=== PATIENT | male | born 1955 | race Caucasian/White ===

== ENCOUNTER → 2018-02-28 | Outpatient (CLI) | payer OTHER | LOC: M ONCR 14:03 | DX: C61 Malignant neoplasm of prostate (principal) | CPT/HCPCS: G0463 ==

== ENCOUNTER → 2018-03-04 | Outpatient (CLI) | payer OTHER | LOC: M SMT PRO 08:46 | DX: C61 Malignant neoplasm of prostate (principal) | CPT/HCPCS: 55876; 76872 ==

== ENCOUNTER → 2018-04-23 | Outpatient (RCR) | payer OTHER ==
--- NOTE | 2018-03-25 09:15 | RADONC ---
RADIATION ONCOLOGY SIMULATION NOTE DATE: 03/25/2018 CHART NUMBER: [id number] Mr. Stanton was taken to the CT scan for CT simulation of his prostate field. CT was accomplished without difficulty or discomfort. Radiation treatment planning is underway and radiation treatments will begin subsequently. An immobilization device was created and be used throughout the course of treatment. It was created without difficulty or discomfort. I was physically present throughout the course of CT simulation.
--- NOTE | 2018-04-08 08:08 | RADONC ---
RADIATION ONCOLOGY PROGRESS NOTE DATE: 04/07/2018 CHART NUMBER: [id number] Mr. Stanton is presently at a dose of 1080 cGy to his prostate and is tolerating treatments quite well at this point with no complaints related to his radiation therapy. He has no urinary or bowel difficulties and no bone pain. REVIEW OF SYSTEMS: The patient's review of systems is noncontributory. He denies nausea, vomiting, fevers, chills, night sweats, diplopia, headaches, anxiety or depression, anorexia, weight loss, visual disturbances, chest pain, urinary or bowel difficulties, bone pain or neurological problems. PHYSICAL EXAMINATION: The patient's skin is in good condition with no evidence of moist or dry desquamation. The remainder of his physical exam remains unchanged. ASSESSMENT: Mr. Stanton tolerated his treatments quite well and radiation will continue as scheduled.
--- NOTE | 2018-04-15 10:14 | RADONC ---
RADIATION ONCOLOGY PROGRESS NOTE DATE: 04/14/2018 CHART NUMBER: [id number] Mr. Stanton is presently at a dose of 1980 cGy to his prostate and is tolerating treatments quite well at this point with no complaints related to his radiation therapy. He is having no urinary or bowel difficulties and no bone pain. REVIEW OF SYSTEMS: The patient's review of systems is noncontributory. He denies nausea, vomiting, fevers, chills, night sweats, diplopia, headaches, anxiety or depression, anorexia, weight loss, visual disturbances, chest pain, urinary or bowel difficulties, bone pain or neurological problems. PHYSICAL EXAMINATION: The patient's skin is in good condition with no evidence of moist or dry desquamation. The remainder of his physical exam remains unchanged. Mr. Stanton is tolerating treatments quite well and radiation will continue as scheduled.
--- NOTE | 2018-04-22 09:11 | RADONC ---
RADIATION ONCOLOGY PROGRESS NOTE DATE: 04/21/2018 CHART NUMBER: [id number] Mr. Stanton is presently receiving radiotherapy for a diagnosis of prostate cancer. His current dose of radiotherapy is 2880 cGy of an anticipated 7920 cGy. REVIEW OF SYSTEMS: The patient denies any nausea, vomiting, diarrhea, dysuria, hematuria or blood per rectum. His energy level is excellent and he is able to maintain most of his day-to-day activities without any alteration of his lifestyle. Skin irritation is denied. He denies dysuria or frequency. PHYSICAL EXAMINATION: The skin within the irradiated volume shows no evidence of erythema and certainly no focal desquamation. The remainder of the physical examination remains unchanged. IMPRESSION: Tolerating therapy quite well. PLAN: Treatments to continue.
== END ==
LOC: M ONCR 03-24 08:48
PROVIDERS: ATTEND Radiology Radiation Oncology
DX: C61 Malignant neoplasm of prostate (principal)

== ENCOUNTER 2018-04-24 07:49 | Outpatient (RCR) | payer OTHER | END 2018-05-23 | LOC: M ONCR 04-25 07:47 | DX: C61 Malignant neoplasm of prostate (principal) | CPT/HCPCS: 77300 ==

== ENCOUNTER 2018-06-04 07:52 | Outpatient (RCR) | payer OTHER ==
--- NOTE | 2018-06-03 10:12 | RADONC ---
RADIATION ONCOLOGY PROGRESS NOTE DATE: 06/02/2018 CHART NUMBER: [id number] Mr. Stanton is presently at a dose of 7560 cGy to his prostate and is tolerating treatments quite well at this point with no complaints related to his radiation therapy. He is having no urinary or bowel difficulties and no bone pain. REVIEW OF SYSTEMS: The patient's review of systems is noncontributory. He denies nausea, vomiting, fevers, chills, night sweats, diplopia, headaches, anxiety or depression, anorexia, weight loss, visual disturbances, chest pain, urinary or bowel difficulties, bone pain or neurological problems. PHYSICAL EXAMINATION: The patient's skin is in good condition with no evidence of radiation change present. There is no moist or dry desquamation. The remainder of his physical exam remains unchanged. Mr. Stanton is tolerating treatments quite well and radiation will continue as scheduled.
--- NOTE | 2018-06-05 10:10 | RADONC ---
RADIATION ONCOLOGY TREATMENT SUMMARY DATE: 06/04/2018 CHART NUMBER: [id number] DIAGNOSIS: Prostate cancer. STAGE: II B, [id number], PSA 12.1, [place] score 7 (3-4), grade group II. ECOG PERFORMANCE STATUS: 0 TREATMENT SUMMARY: Mr. Stanton is a very pleasant, 62-year-old white male with the diagnosis of a stage II B, moderate to poorly differentiated Parrish score 7 (3-4) adenocarcinoma of prostate with a PSA score of 12.1 who is presented to us for consideration of definitive external beam radiation therapy with IMRT/IGRT. We treated the patient to his prostate for a dose of 7920 cGy delivered in 44 fractions of 180 cGy each over 63 elapsed days from 03/31/2018 through 06/04/2018. The patient's prostate was treated on the linear accelerator utilizing a 6 MV photon beam via IMRT/IGRT. We treated the prostate and seminal vesicles initially to a dose of 5400 cGy and in 30 fractions of 180 cGy each and subsequently coned down to the prostate itself to deliver an additional 14 fractions for a dose of 2520 cGy once again bringing the prostate to a total dose of 7920 cGy. Mr. Stanton tolerated his treatments quite well with no significant difficulties related to his radiation therapy. The patient is scheduled see me again in 1 month for further followup. He will also continue to be followed by his other physicians as well. Thank you for allowing us to participate in the care of this very pleasant gentleman. If I could be of any further assistance or provide you with any information, please feel free to contact me anytime. As always, warm regards. cc: Roberto Knox MD [facility]
== END 2018-06-23 ==
LOC: M ONCR 07:52
PROVIDERS: ATTEND Radiology Radiation Oncology
DX: C61 Malignant neoplasm of prostate (principal)

== ENCOUNTER → 2018-07-05 | Outpatient (CLI) | payer OTHER | LOC: M LRY 10:46 | PROVIDERS: ATTEND Radiology Radiation Oncology | DX: C61 Malignant neoplasm of prostate (principal) ==

== ENCOUNTER → 2018-07-09 | Outpatient (CLI) | payer OTHER ==
--- NOTE | 2018-07-10 11:06 | RADONC ---
RADIATION ONCOLOGY FOLLOWUP NOTE DATE: 07/09/2018 CHART NUMBER: [id number] DIAGNOSIS: Prostate cancer. STAGE: Stage II B, [id number], PSA 12.1, Parrish score 7 (3+4), grade group II. ECOG PERFORMANCE STATUS: 0. FOLLOWUP NOTE: Mr. Stanton is a very pleasant 62-year-old white male with the diagnosis of a stage II B, moderate to poorly differentiated [place] score seven (3+4) adenocarcinoma of prostate with a PSA score of 12.1 who is presenting to us today for routine followup visit 1 month post completion of external beam radiation therapy. The patient presents today reporting that he is doing quite well with no complaints at this time related to his radiation therapy or disease. He has no urinary or bowel difficulties. No bone pain. The patient's review of systems is noncontributory. Denies nausea, vomiting, fevers, chills, night sweats, diplopia, headaches, anxiety or depression, anorexia, weight loss, visual disturbances, chest pain, urinary or bowel difficulties, bone pain, or neurological problems. PHYSICAL EXAMINATION: The patient is a well-developed, well-nourished male in no acute distress. HEENT exam is normocephalic, atraumatic. Extraocular movements are intact. There is no palpable cervical, supraclavicular, infraclavicular, axillary, or inguinal lymphadenopathy present. Lungs are clear to auscultation and percussion. Heart has a regular rate and rhythm. Abdomen is benign with no hepatosplenomegaly, masses, or tenderness. Rectal examination reveals a normal anal sphincter tone. His prostate is smooth with no evidence of nodularity. Skeletal examination reveals no tenderness to pressure or percussion of the bony skeleton. Extremities reveal no clubbing, cyanosis, or edema. Neurologic exam is grossly intact, as is the remainder of the physical examination. ASSESSMENT: The patient is clinically MERCED at this time and will be seen by us again in 6 months for further followup. He will also continue to be followed by his other physicians as well.
== END ==
LOC: M ONCR 09:09
PROVIDERS: ATTEND Radiology Radiation Oncology
DX: C61 Malignant neoplasm of prostate (principal)

== ENCOUNTER → 2018-12-19 | Outpatient (CLI) | payer OTHER | LOC: M LRY 10:00 | PROVIDERS: ATTEND Radiology Radiation Oncology | DX: C61 Malignant neoplasm of prostate (principal) ==

== ENCOUNTER → 2018-12-24 | Outpatient (CLI) | payer OTHER ==
--- NOTE | 2018-12-24 14:29 | RADONC ---
RADIATION ONCOLOGY FOLLOW-UP NOTE DATE: 12/24/2018 CHART NUMBER: [id number] DIAGNOSIS: Prostate cancer. STAGE: IIB, [id number], PSA 12.1. CODY SCORE: 7 (3+4), grade group 2. ECOG PERFORMANCE STATUS: 0 FOLLOW-UP NOTE: Mr. Stanton is a pleasant 63-year-old man who has a diagnosis of a stage IIB, moderately differentiated to poorly differentiated adenocarcinoma of the prostate Shelby this score 7 (3+4). He returns today for a follow-up visit after having completed a course of local regional radiotherapy on 06/04/2018. He has no specific complaints referable to his disease or to his treatment. His most recent PSA obtained on 12/19/2018 revealed a level of 0.58 nanograms per mL. REVIEW OF SYSTEMS: He denies any nausea, vomiting, diarrhea, dysuria, hematuria or blood per rectum. His energy level is excellent and he is able to maintain most day-to-day activities without any alteration of his lifestyle. Skin irritation is not reported. In fact that the patient has no complaints and all referable to his disease or to his treatments. PHYSICAL EXAMINATION: The skin within the irradiated volume shows no evidence of erythema and certainly no focal desquamation. There is no palpable peripheral lymphadenopathy noted. Lungs: Clear to auscultation and percussion. Heart: Regular without murmurs. Abdomen: Without evidence of hepatomegaly, masses, deep abdominal tenderness. Extremities: Without cyanosis, clubbing or edema. Neurologic Examination: Nonfocal and grossly physiologic. Rectal Examination: Negative. IMPRESSION: Doing well status post completion of his external beam radiotherapy and clinically MERCED. PLAN: We would like to see him again in approximately 6 months or p.r.n. and he was advised to return his referring physicians as per their directions and instructions. Thank you for allowing us the opportunity of participation in the joint follow-up care of this very fine gentleman. cc: Roberto Knox MD [facility]
== END ==
LOC: M ONCR 09:08
PROVIDERS: ATTEND Radiology Radiation Oncology
DX: Z92.3 Personal history of irradiation (principal); Z85.46 Personal history of malignant neoplasm of prostate

== ENCOUNTER 2025-05-27 08:24 | Day surgery (SDC) | payer OTHER, MEDICARE ==
[~2025-05-27] VITALS: Ht 175.3 cm; Wt 76.2 kg
[~2025-05-27 08:24] MED LIST: ASPI81CH33 PO; CARB25TA18 PO; JARD1TAB PO; LEVO25CA2 PO; LOSA25TA13 PO; METF-877 PO; MIDAZOLAM INJ 2 MG/2 ML VIAL As Ordered ONE; PHENYLEPHRINE 10% OPHTH SOL 5ML OS PRN
[2025-05-27] MEDS: LIDOCAINE 3.5% 1 ML OPHTH TOPICAL GEL OU ONE (09:29)
[2025-05-27] MEDS: CYCLOPENTOLATE 1% OPHTH SOLN 2 ML BTL OS SCH (09:29)
[2025-05-27] MEDS: PHENYLEPHRINE 2.5% OPHTH SOL 2ML OS SCH (09:29)
[2025-05-27] MEDS: OFLOXACIN 0.3 % (OCUFLOX) OPTH SOL 5ML OS ONE (09:29)
[2025-05-27] MEDS: TROPICAMIDE 1% OPHTH SOLN 15ML OS SCH (09:29)
[2025-05-27] MEDS: LIDOCAINE 1% SDV 5 ML VIAL As Ordered ONE (10:30)
[2025-05-27] MEDS: CEFUROXIME 1 MG/0.1 ML INTRACAMERAL INJ As Ordered ONE (10:30)
[2025-05-27 10:38] VITALS: BP 103/52; TEMP 96.8; O2SAT 96
== END 2025-05-27 10:50 | disposition home or self-care (01) ==
LOC: M SDC 08:24
PROVIDERS: ATTEND Ophthalmology
DX: E11.36 Type 2 diabetes mellitus with diabetic cataract (principal); H25.12 Age-related nuclear cataract, left eye; I10 Essential (primary) hypertension; E03.9 Hypothyroidism, unspecified; G20.A1 Parkinson's disease without dyskinesia, without mention of fluctuations; R32 Unspecified urinary incontinence; E78.00 Pure hypercholesterolemia, unspecified; Z79.82 Long term (current) use of aspirin; Z79.84 Long term (current) use of oral hypoglycemic drugs; Z79.890 Hormone replacement therapy; Z79.899 Other long term (current) drug therapy; Z85.46 Personal history of malignant neoplasm of prostate; Z90.49 Acquired absence of other specified parts of digestive tract; Z92.3 Personal history of irradiation
CPT/HCPCS: 66984; J0697; J2250; J3010; V2632

== ENCOUNTER 2025-06-10 08:27 | Day surgery (SDC) | payer MEDICARE, OTHER ==
[~2025-06-10] VITALS: Ht 177.8 cm; Wt 76.3 kg
[~2025-06-10 08:27] MED LIST changes: -MIDAZOLAM INJ 2 MG/2 ML VIAL As Ordered ONE; +PHENYLEPHRINE 10% OPHTH SOL 5ML OD PRN; -PHENYLEPHRINE 10% OPHTH SOL 5ML OS PRN
[2025-06-10] MEDS: LIDOCAINE 3.5% 1 ML OPHTH TOPICAL GEL OU ONE (10:09)
[2025-06-10] MEDS: OFLOXACIN 0.3 % (OCUFLOX) OPTH SOL 5ML OD ONE (10:09)
[2025-06-10] MEDS: TROPICAMIDE 1% OPHTH SOLN 15ML OD SCH (10:10)
[2025-06-10] MEDS: CYCLOPENTOLATE 1% OPHTH SOLN 2 ML BTL OD SCH (10:10)
[2025-06-10] MEDS: PHENYLEPHRINE 2.5% OPHTH SOL 2ML OD SCH (10:10)
[2025-06-10] MEDS ORDERED: MIDAZOLAM INJ 2 MG/2 ML VIAL As Ordered ONE (10:16)
[2025-06-10] MEDS: CEFUROXIME 1 MG/0.1 ML INTRACAMERAL INJ As Ordered ONE (10:55)
[2025-06-10] MEDS: LIDOCAINE 1% SDV 5 ML VIAL As Ordered ONE (11:01)
[2025-06-10 11:12] VITALS: BP 122/58; TEMP 97.8; O2SAT 98
== END 2025-06-10 11:32 | disposition home or self-care (01) ==
LOC: M SDC 08:27
PROVIDERS: ATTEND Ophthalmology
DX: E11.36 Type 2 diabetes mellitus with diabetic cataract (principal); H25.11 Age-related nuclear cataract, right eye; E03.9 Hypothyroidism, unspecified; I10 Essential (primary) hypertension; G20.A1 Parkinson's disease without dyskinesia, without mention of fluctuations; Z98.42 Cataract extraction status, left eye; Z79.82 Long term (current) use of aspirin; Z79.84 Long term (current) use of oral hypoglycemic drugs; Z79.890 Hormone replacement therapy; Z79.899 Other long term (current) drug therapy; Z85.46 Personal history of malignant neoplasm of prostate; Z90.49 Acquired absence of other specified parts of digestive tract
CPT/HCPCS: 66984; J0697; J2250; J3010; V2632